=== PATIENT | male | born 1965 | race Caucasian/White ===

== ENCOUNTER → 2020-04-29 | Outpatient (CLI) | payer BC ==
[2020-04-29 13:08] LABS: D-DIMER 0.23 mg/L FEU (0.15-0.50)
== END ==
LOC: LAB 11:31
PROVIDERS: Family Medicine
DX: M79.89 Other specified soft tissue disorders (principal); M79.601 Pain in right arm; R23.8 Other skin changes

== ENCOUNTER → 2023-03-02 | Outpatient (CLI) | payer OTHER | LOC: RAD 11:48 | DX: M47.812 Spondylosis without myelopathy or radiculopathy, cervical region (principal); M50.30 Other cervical disc degeneration, unspecified cervical region; M47.813 Spondylosis without myelopathy or radiculopathy, cervicothoracic region ==